=== PATIENT | male | born 1955 | race Two or more races ===

== ENCOUNTER 2019-03-26 10:29 | Inpatient (IN) | payer OTHER ==
[~2019-03-26] VITALS: Ht 167.6 cm; Wt 62.6 kg
[2019-04-09] MEDS ORDERED: ATORVASTATIN CA80 MG PO (10:42)
[2019-04-09] MEDS ORDERED: FOLIC ACID1 MG PO (10:42)
[2019-04-09] MEDS ORDERED: COZAAR100 MG PO (10:42)
[2019-04-09] MEDS ORDERED: AMLODIPINE BESY10 MG PO (10:42)
[2019-04-17] MEDS ORDERED: PANTOPRAZOLE SO40 MG PO (11:36)
[2019-04-17] MEDS ORDERED: TRAM1TAB98 PO (11:36)
[2019-04-17] MEDS ORDERED: Intestinex CAP PO (11:36)
== END 2019-04-17 13:46 | disposition home or self-care (01) | DRG 331 ==
LOC: EDBD 04-14 09:45 → SURH 04-14 09:45 → O/R 04-14 15:01 → SURG 04-14 15:01
PROVIDERS: ADMIT Surgery
PROC: 07TB4ZZ Resection of Mesenteric Lymphatic, Percutaneous Endoscopic Approach (ICD-10-PCS; 2019-04-14)
PROC: 0DJD8ZZ Inspection of Lower Intestinal Tract, Via Natural or Artificial Opening Endoscopic (ICD-10-PCS; 2019-04-14)
PROC: 0DTN4ZZ Resection of Sigmoid Colon, Percutaneous Endoscopic Approach (ICD-10-PCS; principal; 2019-04-14 12:15)
DX: C18.5 Malignant neoplasm of splenic flexure (principal); R59.0 Localized enlarged lymph nodes; D50.0 Iron deficiency anemia secondary to blood loss (chronic); E78.00 Pure hypercholesterolemia, unspecified; I13.10 Hypertensive heart and chronic kidney disease without heart failure, with stage 1 through stage 4 chronic kidney disease, or unspecified chronic kidney disease; N18.2 Chronic kidney disease, stage 2 (mild)

== ENCOUNTER 2019-06-30 05:49 | Day surgery (SDC) | payer OTHER ==
[~2019-06-30 05:49] MED LIST: AMLODIPINE BESY10 MG PO; ATORVASTATIN CA80 MG PO; COZAAR100 MG PO; FOLIC ACID1 MG PO; Intestinex CAP PO; PANTOPRAZOLE SO40 MG PO; TRAM1TAB98 PO
[2019-06-30] MEDS ORDERED: ULTRACET PO (10:26)
== END 2019-06-30 12:55 | disposition home or self-care (01) ==
LOC: CIR.AMB 05:49
DX: C18.5 Malignant neoplasm of splenic flexure (principal)
CPT/HCPCS: 36561; C1751

== ENCOUNTER 2020-05-11 09:20 | Day surgery (SDC) | payer OTHER ==
[~2020-05-11 09:20] MED LIST changes: +ULTRACET PO
== END 2020-05-11 13:40 | disposition home or self-care (01) ==
LOC: AMB-ENDOS 09:20 → ADM 13:15 → AMB-ENDOS 13:40
PROVIDERS: ATTEND Surgery
DX: K62.89 Other specified diseases of anus and rectum (principal); K64.8 Other hemorrhoids

== ENCOUNTER 2021-06-28 07:40 | Day surgery (SDC) | payer OTHER | END 2021-06-28 11:30 | disposition home or self-care (01) | LOC: CIR.AMB 07:40 → AMB-ENDOS 07:40 → CIR.AMB 13:00 | PROVIDERS: ATTEND Surgery | DX: K62.89 Other specified diseases of anus and rectum (principal); K64.8 Other hemorrhoids; Z20.822 Contact with and (suspected) exposure to COVID-19 ==

== ENCOUNTER 2025-03-26 06:08 | Day surgery (SDC) | payer OTHER ==
[2025-03-18 11:38] VITALS: BP 160/84
[~2025-03-26] VITALS: Ht 167.6 cm; Wt 63.5 kg
[~2025-03-26 06:08] MED LIST changes: +CRESTOR40 MG PO; +FLUOXETINE DR90 MG; +MEMANTINE HCL10 MG PO; +ZETIA10 MG
[2025-03-26] MEDS ORDERED: LIDOCAINE HCL 1% 20 ML VIAL IJ ONE (07:26)
[2025-03-26] MEDS ORDERED: BUPIVACAINE HCL/MPF 0.5% 30ML VIAL ONE (07:26)
[2025-03-26] MEDS ORDERED: CLINDAMYCIN PHOSPHATE 150 MG/ML (900mg) ONE (07:33)
[2025-03-26] MEDS ORDERED: TRAM1TAB98 PO (08:14)
== END 2025-03-26 10:00 | disposition home or self-care (01) ==
LOC: CIR.AMB 06:08
PROVIDERS: ATTEND Surgery
DX: T82.594A Other mechanical complication of infusion catheter, initial encounter (principal); C18.5 Malignant neoplasm of splenic flexure; R59.0 Localized enlarged lymph nodes; Z88.0 Allergy status to penicillin